=== PATIENT | male | born 1965 | race Caucasian/White ===

== ENCOUNTER → 2020-03-29 10:55 | Outpatient (BNVA) | payer MEDICARE, SELFPAY | PROVIDERS: Visit Provider Nurse Practitioner | DX: E11.65 Type 2 diabetes mellitus with hyperglycemia (principal); Z23 Encounter for immunization | CPT/HCPCS: 80053; 80061; 81000; 82043; 83036 ==

== ENCOUNTER → 2020-08-12 15:32 | Outpatient (BNVA) | payer MEDICARE, MEDICAID, SELFPAY | PROVIDERS: PCP Nurse Practitioner; Visit Provider Nurse Practitioner | DX: E11.65 Type 2 diabetes mellitus with hyperglycemia (principal); E78.2 Mixed hyperlipidemia | CPT/HCPCS: 80053; 81000; 83036; 85025 ==

== ENCOUNTER → 2020-12-09 09:01 | Outpatient (BNVA) | payer MEDICARE, MEDICAID, SELFPAY | PROVIDERS: PCP Nurse Practitioner; Visit Provider Nurse Practitioner | DX: E11.40 Type 2 diabetes mellitus with diabetic neuropathy, unspecified (principal); E78.2 Mixed hyperlipidemia | CPT/HCPCS: 80053; 80061; 83036 ==

== ENCOUNTER → 2021-05-19 09:15 | Outpatient (BNVA) | payer MEDICARE, MEDICAID, SELFPAY | PROVIDERS: PCP Nurse Practitioner; Visit Provider Nurse Practitioner | DX: E11.65 Type 2 diabetes mellitus with hyperglycemia (principal) | CPT/HCPCS: 80053; 80061; 81000; 83036 ==

== ENCOUNTER → 2021-11-08 11:11 | Outpatient (BNVA) | payer MEDICARE, MEDICAID, SELFPAY | PROVIDERS: PCP Nurse Practitioner; Visit Provider Nurse Practitioner | DX: E11.65 Type 2 diabetes mellitus with hyperglycemia (principal); E78.2 Mixed hyperlipidemia | CPT/HCPCS: 80053; 80061; 82043; 83036 ==

== ENCOUNTER → 2021-11-29 11:52 | Outpatient (BNVA) | payer MEDICARE, MEDICAID, SELFPAY | PROVIDERS: PCP Nurse Practitioner; Visit Provider Nurse Practitioner | DX: E11.65 Type 2 diabetes mellitus with hyperglycemia (principal) | CPT/HCPCS: 80048; 81000 ==

== ENCOUNTER → 2022-02-09 10:20 | Outpatient (BNVA) | payer MEDICARE, MEDICAID, SELFPAY | PROVIDERS: PCP Nurse Practitioner; Visit Provider Nurse Practitioner | DX: E78.2 Mixed hyperlipidemia (principal); E11.65 Type 2 diabetes mellitus with hyperglycemia | CPT/HCPCS: 80053; 80061; 81000; 83036 ==

== ENCOUNTER → 2022-04-13 14:19 | Outpatient (BNVA) | payer MEDICARE, MEDICAID, SELFPAY | PROVIDERS: PCP Nurse Practitioner; Visit Provider Podiatrist Foot & Ankle Surgery | DX: E11.8 Type 2 diabetes mellitus with unspecified complications (principal); E11.40 Type 2 diabetes mellitus with diabetic neuropathy, unspecified; M20.42 Other hammer toe(s) (acquired), left foot; Z79.84 Long term (current) use of oral hypoglycemic drugs; M21.722 Unequal limb length (acquired), left humerus; M21.372 Foot drop, left foot; M20.41 Other hammer toe(s) (acquired), right foot | CPT/HCPCS: 11721 ==

== ENCOUNTER → 2022-05-03 11:15 | Outpatient (BNVA) | payer MEDICARE, MEDICAID, SELFPAY | PROVIDERS: PCP Nurse Practitioner; Visit Provider Nurse Practitioner | DX: E11.65 Type 2 diabetes mellitus with hyperglycemia (principal); E78.2 Mixed hyperlipidemia; Z23 Encounter for immunization | CPT/HCPCS: 81000; 82043; 83036 ==

== ENCOUNTER → 2022-07-19 10:26 | Outpatient (BNVA) | payer MEDICARE, SELFPAY | PROVIDERS: PCP Nurse Practitioner; Visit Provider Nurse Practitioner | DX: E11.65 Type 2 diabetes mellitus with hyperglycemia (principal); E78.2 Mixed hyperlipidemia | CPT/HCPCS: 80053; 81000; 83036 ==

== ENCOUNTER → 2022-10-11 10:32 | Outpatient (BNVA) | payer MEDICARE, MEDICAID, SELFPAY | PROVIDERS: PCP Nurse Practitioner; Visit Provider Nurse Practitioner | DX: E11.65 Type 2 diabetes mellitus with hyperglycemia (principal); E78.2 Mixed hyperlipidemia; J30.89 Other allergic rhinitis | CPT/HCPCS: 80053; 81000; 83036 ==

== ENCOUNTER → 2023-01-04 10:34 | Outpatient (BNVA) | payer MEDICARE, MEDICAID, SELFPAY | PROVIDERS: PCP Nurse Practitioner; Visit Provider Nurse Practitioner | DX: E11.65 Type 2 diabetes mellitus with hyperglycemia (principal); E78.2 Mixed hyperlipidemia | CPT/HCPCS: 80053; 80061; 81000; 82043; 83036; 84443 ==

== ENCOUNTER → 2023-03-29 11:13 | Outpatient (BNVA) | payer MEDICARE, MEDICAID, SELFPAY | PROVIDERS: PCP Nurse Practitioner; Visit Provider Nurse Practitioner | DX: E11.65 Type 2 diabetes mellitus with hyperglycemia (principal); J30.89 Other allergic rhinitis; E78.2 Mixed hyperlipidemia | CPT/HCPCS: 80053; 81000; 83036 ==

== ENCOUNTER → 2023-06-21 11:28 | Outpatient (BNVA) | payer MEDICARE, MEDICAID, SELFPAY | PROVIDERS: PCP Nurse Practitioner; Visit Provider Nurse Practitioner | DX: E11.9 Type 2 diabetes mellitus without complications (principal) | CPT/HCPCS: 80053; 80061; 81000; 82607; 83036 ==

== ENCOUNTER → 2023-09-06 11:47 | Outpatient (BNVA) | payer MEDICARE, MEDICAID, SELFPAY | PROVIDERS: PCP Nurse Practitioner; Visit Provider Nurse Practitioner | DX: E11.9 Type 2 diabetes mellitus without complications (principal) | CPT/HCPCS: 80053; 83036 ==

== ENCOUNTER 2023-11-03 14:24 | Emergency (ER) | payer MEDICARE, MEDICAID, SELFPAY ==
[2023-11-03 14:53] VITALS: BP 118/68; PULSE 91; RESP 18; TEMP 36.4; O2SAT 98; BMI 25.0
--- NOTE | 2023-11-03 16:16 | XRR_ITS ---
PROCEDURE INFORMATION: Exam: XR Cervical Spine Exam date and time: 11/03/2023 5:17 PM Age: 57 years old Clinical indication: Neck pain and other: Right shoulder pain x 3 days TECHNIQUE: Imaging protocol: Radiologic exam of the cervical spine. Views: 4 or 5 views. COMPARISON: No relevant prior studies available. FINDINGS: Bones/joints: Vertebral body spurring can be seen at multiple levels. No fracture or subluxation noted. Soft tissues: Unremarkable. XR/XR cervical spine 4-5V [id number] IMPRESSION: No acute findings.
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
[2023-11-03] MEDS: ketorolac 60 mg/2 mL INJ IM (16:44)
[2023-11-03] MEDS: orphenadrine 30 mg/mL Inj 2 mL 60 MG IM (16:45)
== END 2023-11-03 19:26 | disposition home or self-care (01) ==
PROVIDERS: Emergency Provider Internal Medicine; PCP Nurse Practitioner
DX: M54.12 Radiculopathy, cervical region (principal); Z79.84 Long term (current) use of oral hypoglycemic drugs; E11.9 Type 2 diabetes mellitus without complications; E78.2 Mixed hyperlipidemia
CPT/HCPCS: 72050; 96372; 99284; J1885; J2360

== ENCOUNTER → 2023-12-31 09:42 | Outpatient (BNVA) | payer OTHER, SELFPAY | PROVIDERS: PCP Nurse Practitioner; Visit Provider Nurse Practitioner | DX: E11.65 Type 2 diabetes mellitus with hyperglycemia (principal) | CPT/HCPCS: 80053; 80061; 81000; 82043; 82607; 83036 ==

== ENCOUNTER → 2024-03-17 09:10 | Outpatient (BNVA) | payer MEDICARE, MEDICAID, SELFPAY ==
[2024-03-07 15:57] VITALS: BP 105/63; BMI 24.3
== END ==
PROVIDERS: PCP Nurse Practitioner; Visit Provider Nurse Practitioner
DX: E11.9 Type 2 diabetes mellitus without complications (principal)
CPT/HCPCS: 80053; 81000; 83036

== ENCOUNTER → 2024-06-02 10:13 | Outpatient (BNVA) | payer MEDICAID, SELFPAY ==
[2024-03-07 15:57] VITALS: BP 105/63; BMI 24.3
== END ==
PROVIDERS: PCP Nurse Practitioner; Visit Provider Nurse Practitioner
DX: Z12.5 Encounter for screening for malignant neoplasm of prostate (principal); E11.9 Type 2 diabetes mellitus without complications
CPT/HCPCS: 80053; 81000; 83036; G0103

== ENCOUNTER → 2024-08-20 12:18 | Outpatient (BNVA) | payer OTHER, SELFPAY ==
[2024-03-07 15:57] VITALS: BP 105/63; BMI 24.3
== END ==
PROVIDERS: PCP Nurse Practitioner; Visit Provider Clinical Nurse Specialist Adult Health
DX: J06.9 Acute upper respiratory infection, unspecified (principal)
CPT/HCPCS: 87400

== ENCOUNTER → 2024-08-28 09:41 | Outpatient (BNVA) | payer MEDICARE, MEDICAID, SELFPAY ==
[2024-03-07 15:57] VITALS: BP 105/63; BMI 24.3
== END ==
PROVIDERS: PCP Nurse Practitioner; Visit Provider Nurse Practitioner
DX: R05.9 Cough, unspecified (principal); E78.2 Mixed hyperlipidemia; E11.65 Type 2 diabetes mellitus with hyperglycemia
CPT/HCPCS: 71046; 80053; 80061; 81000; 82043; 83036; 85025

== ENCOUNTER → 2024-11-20 10:39 | Outpatient (BNVA) | payer MEDICARE, SELFPAY ==
[2024-03-07 15:57] VITALS: BP 105/63; BMI 24.3
== END ==
PROVIDERS: PCP Nurse Practitioner; Visit Provider Nurse Practitioner
DX: E11.9 Type 2 diabetes mellitus without complications (principal)
CPT/HCPCS: 80053; 80061; 81000; 83036

== ENCOUNTER → 2025-02-12 09:50 | Outpatient (BNVA) | payer MEDICARE, SELFPAY ==
[2024-03-07 15:57] VITALS: BP 105/63; BMI 24.3
== END ==
PROVIDERS: PCP Nurse Practitioner; Visit Provider Nurse Practitioner
DX: E11.9 Type 2 diabetes mellitus without complications (principal)
CPT/HCPCS: 80053; 80061; 81000; 83036

== ENCOUNTER → 2025-05-06 10:06 | Outpatient (BNVA) | payer MEDICARE, SELFPAY ==
[2024-03-07 15:57] VITALS: BP 105/63; BMI 24.3
== END ==
PROVIDERS: PCP Nurse Practitioner; Visit Provider Nurse Practitioner
DX: Z23 Encounter for immunization (principal); E11.65 Type 2 diabetes mellitus with hyperglycemia
CPT/HCPCS: 81000

== ENCOUNTER → 2025-05-07 08:18 | Outpatient (BNVA) | payer MEDICARE, SELFPAY ==
[2024-03-07 15:57] VITALS: BP 105/63; BMI 24.3
== END ==
PROVIDERS: PCP Nurse Practitioner; Visit Provider Nurse Practitioner
DX: Z12.5 Encounter for screening for malignant neoplasm of prostate (principal); E11.65 Type 2 diabetes mellitus with hyperglycemia
CPT/HCPCS: 80053; 83036; G0103